=== PATIENT | female | born 1970 | race Caucasian/White ===

== ENCOUNTER 2016-08-19 00:47 | Emergency (ER) | payer OTHER ==
[~2016-08-19] VITALS: Ht 172.7 cm; Wt 83.2 kg
--- NOTE | 2016-08-19 00:56 | ED.REPORT ---
HPI-Extremity Problem Lower Date of Service August 19, 2016 ED Provider: Hiren Yeh MD 46 year old female with a history of left knee arthritis presents to the ER via EMS accompanied by her complaining of severe sharp, shooting left knee pain onset after she rolled over in bed and attempted to straighten her knee just prior to arrival. Pain is exacerbated by any movement of the joint, and relieved by staying still. She endorses chronic "clicking" of the knee joint with articulation. Patient denies any recent injury to the affected knee. Nursing Notes Stated Complaint: L KNEE PAIN Nursing Notes Reviewed: Yes Allergies: Coded Allergies: No Known Allergies (Unverified , 08/19/16) Scheduled PRN Ibuprofen (Ibuprofen) 600 Mg Tablet 600 MG PO QID PRN PRN For Pain Ondansetron ODT (Ondansetron ODT) 8 Mg Tab.rapdis 8 MG PO QID PRN PRN For Nausea General Time Seen by MD: 00:56 Chief Complaint Knee injury left Hx Obtained From: Patient Arrived By: Ambulance Onset Occurred: Just prior to arrival Symptom Duration: Since onset Caused by: Mechanism unknown Context: Occurred at: Home injury Location: : Knee left Quality: Sharp Severity: Current: Mild Severity: Maximum: Severe Pertinent Negative: Pt denies other symptoms Exacerbated by: Extension, Flexion, Movement, Twisting Pertinent Negative: Relieved by nothing Similar Sx Previous: Yes Past Medical History Past Medical History Arthritis Smoking History Unknown if Ever Smoker Social History Other Social History: Good social support, Review of Systems Musculoskeletal: Reports: Joint pain (Left Knee), Joint swelling (Left Knee), Denies: Back pain, Extremity pain, Lumbar pain, Neck pain, Thoracic pain Neurologic: Denies: Numbness Complete sys rev & neg: except as marked. Physical Exam Initial Vital Signs Vital Signs (First) Date Time Temp Pulse Resp B/P Pulse Ox O2 Delivery O2 Flow Rate FiO2 08/19/16 00:59 36.9 80 22 130/77 96 Room Air Initial VS: Reviewed General/Constitutional: Well-developed, Well-nourished Head / Eyes: Atraumatic, Normocephalic, PERRL Neck: Supple, Non-tender, Full range of motion Upper Extremities: Vascular intact, Neuro intact, No swelling, No tenderness Skin: Warm, Dry, No cyanosis Neurologic: Alert, Oriented, Nonfocal Lower Extremity / Pelvis / MS: No deformity, Neurologic intact, Vascular intact Left Knee: Positive: ROM painful, Tenderness present... (Moderate, with guarding) Swelling of the left infrapatellar bursa. Ankle / Foot: Atraumatic, Inspection NL, Full range of motion, No swelling, No erythema, Non-tender, No deformity, Neurologic intact, Vascular intact, No edema Interpretation & Diagnostics Lab Results Interpretation Test 08/19/16 01:13 Hold Urine Received (Received) X-Ray Interpretation Xray Interpretation: Thinning of the medial compartment. Lax patellar tendon with slightly high-riding patella. X-Ray Ordered: Knee left Interpretation / Wet Read by: Wet read ED physician Re-Eval/Medical Decision Med Decision/Clinical Course Tender medial compartment of the knee with clicking and locking and severe pain suggesting cartilaginous loose body and internal derangement. Already known to orthopedics. Placed in a short knee immobilizer and given crutches from her boyfriend. Toradol here with one half Vicodin and a go pack of Vicodin for home use. Zofran for the anticipated nausea. Follow-up with PCP and with orthopedic Source of Hx: Old records Re-Evaluation/Progress #1: Time of Eval: 01:13 Re-Evaluation/Progress Note: Discussed physical examination findings and need for x-ray. Patient understands and agrees to the plan. Re-Evaluation/Progress #2: Time of Eval: 01:44 Re-Evaluation/Progress Note: Discussed lab and imaging results and plan to discharge. Patient is amenable to the plan. Return precautions given. All other questions addressed. Counseled Regarding: Diagnosis, Lab results, Need for follow-up, When/why to return to ED Discharge & Departure Impression: Primary Impression: Internal derangement of left knee Disposition: Home Discharge Condition All VS Reviewed: Yes Condition: Stable Additional Instructions: Wear your knee immobilizer for comfort. If you are more comfortable without it , you may omit it. It is strictly a comfort measure. Ibuprofen first then sparing use of Vicodin if needed for pain Zofran if needed for times daily for nausea Call your orthopedist tomorrow for follow-up at your next mutual convenience Crutches whenever up to avoid weightbearing Follow-up also with your doctor in the office Return if any immediate issues. Referrals: Stiven Howell MD (PCP) Hiren Maza MD Scribe Attestation Portions of this note were transcribed by Sanchez Vyas. I, Dr. Yeh, personally performed the history, physical exam and medical decision-making; I reviewed and confirmed the accuracy of the information in the transcribed note. Signed by: Tal Gregory, 08/19/2016 at 01:47 copies to: Stiven Howell MD; Hiren Maza MD, Christopher W MD August 19, 2016 00:56 SANCHEZ VYAS August 19, 2016 01:10
[2016-08-19 00:59] VITALS: BP 130/77; PULSE 80; RESP 22; O2SAT 96
[2016-08-19] MEDS ORDERED: Ondansetron 8 mg ODT Tablet PO ONE (01:15)
[2016-08-19] MEDS ORDERED: HYDROcodone-APAP 5-325 mg Tablet PO ONE (01:15)
[2016-08-19] MEDS ORDERED: _HYDROcodone/APAP 5-325 mg Tablet PO PRN (01:15)
[2016-08-19] MEDS ORDERED: _Ondansetron ODT 4 mg Tablet PO PRN (01:15)
[2016-08-19] MEDS ORDERED: ONDA8TAB10 PO (01:31)
[2016-08-19] MEDS ORDERED: IBUP-1827 PO (01:33)
--- NOTE | 2016-08-19 07:56 | DRSVH ---
PROCEDURE: X-RAY LEFT KNEE, ONE OR TWO VIEWS ([id number]) INDICATIONS: pain withoout traume TECHNIQUE: 3 views of the knee were acquired. COMPARISON: None. FINDINGS: Bones: No fractures or dislocations. No suspicious bony lesions. Tricompartmental degenerative anand nge greatest in the medial compartment greater than expected for the patient's age. Soft tissues: No joint effusion. No suspicious soft tissue calcifications. IMPRESSION: Tricompartment degenerative change greater than expected for the patient's age. No acute fractures or dislocations. Dictated by: Garo Valladares M.D. on 08/19/2016 at 7:53 Approved by: Garo Valladares M.D. on 08/19/2016 at 7:54
== END 2016-08-19 02:08 | disposition home or self-care (01) ==
LOC: SED 00:47
DX: M23.8X2 Other internal derangements of left knee (principal)
CPT/HCPCS: 73560; 81025; 96372; 99284; J1885

== ENCOUNTER 2016-09-21 09:51 | Day surgery (SDC) | payer OTHER ==
[2016-09-21] VITALS (9 sets, daily range): BP systolic 116–220; BP diastolic 66–79; PULSE 78–93; RESP 14–16; O2SAT 93–98
[~2016-09-21] VITALS: Ht 172.7 cm; Wt 86.8 kg
[~2016-09-21 09:51] MED LIST: CeFAZolin Inj 2 GM in IV Premix 1 EACH IV ONE
[2016-09-21] MEDS ORDERED: fentaNYL-PF 50 mCg/mL 2 mL Inj ONE (09:52)
[2016-09-21] MEDS ORDERED: Propofol 10,000 mCg/mL 20 mL Inj ONE (09:52)
[2016-09-21] MEDS ORDERED: Dexamethasone 4 mg/mL Inj ONE (09:52)
[2016-09-21] MEDS ORDERED: Lidocaine PF 1% 30 mL Inj ONE (09:52)
[2016-09-21] MEDS ORDERED: Ondansetron 2 mg/mL 2 mL Inj ONE (09:52)
[2016-09-21] MEDS: Lactated Ringer's 1,000 ML IV SCH ×2 (09:57→12:39)
[2016-09-21] MEDS ORDERED: HYDROcodone-APAP 5-325 mg Tablet PO PRN (11:15)
[2016-09-21] MEDS ORDERED: Ketorolac 15 mg/mL Inj IVPUSH ONE (11:15)
--- NOTE | 2016-09-21 12:06 | PCM.ORTHOP ---
Orthopedic Operative Report Date of Service: Sep 21, 2016 Pre Operative Diagnosis Left knee loose body, chondromalacia Post Operative Diagnosis Same Procedure Left knee arthroscopy, multiple loose chondral bodies removal, chondroplasty, partial synovectomy Surgeon Surgeon: Hiren Maza MD Assistants: None Indication for Procedure Left knee loose body Findings Per dictation Details of Procedure INDICATIONS: Tiffanie Valdez is a 46-year-old female who has had a history of left knee pain after injury with loose body versus exostosis noted on MRI and mechanical symptoms.. The patient has failed conservative management. X-rays show the tibiofemoral joints to be preserved with mild DJD. MRI was obtained which reveals no meniscus tear with chondromalacia. The patient has had persistent symptoms and is now brought to the operating room for arthroscopy. The risks, benefits, and alternatives of surgery were discussed with the patient. The risks included but were not limited to infection, bleeding, damage to vessels and nerves, loss of motion, continued pain, re-tear of the meniscus, deep venous thrombosis, and complications due to anesthesia including nerve injury, myocardial infarction, stroke, , etc. The patient stated understanding of the nature of the surgical procedure and gave written and verbal consent to proceed. PROCEDURE: The patient was brought to the operating room and placed supine on the operating room table. After the administration of general anesthesia the patient was placed in the supine position. Examination of the knee revealed no evident instability with a trace effusion. All prominences were padded with appropriately and neurovascular structures protected. The left knee was confirmed to be the appropriate site following surgical time out. The left lower extremity was examined under anesthesia. Range of motion was 0-135 degrees. There was no varus or valgus or anterior or posterior instability. The left lower extremity was then prepped and draped in the usual fashion. Sterile prep and drape was then undertaken of the knee. The knee joint was injected with 20 ccs of 1% Lidocaine, along with 3 ccs of 1 % lidocaine in the medial and lateral portal sites respectively. A standard anterolateral parapatellar stab wound was created. The knee joint was entered with a blunt- tipped obturator, followed by the 30-degree video arthroscope. An anteromedial portal was established under arthroscopic control. A routine arthroscopic survey was performed. Small chondral loose bodies were removed the largest being 1 cm x 5 mm. The lateral patellofemoral joint demonstrated an exostosis which was fixed to the femur The patellofemoral joint showed grade 2/3 chondromalacia which was debrided down to stable tissue with a shaver. She had a severely laterally maltracking patella with grade 3/4 chondromalacia changes to the medial trochlea. The medial joint space was then entered. The articular surfaces showed grade 2/ 3 chondromalacia. The meniscus appeared to be intact. The shaver and the cutting instruments were inserted, and gentle debridement of the cartilage down to stable tissue was then undertaken. The ACL and PCL were noted to be intact. The lateral joint space was then entered. The articular surfaces were intact with grade 2/3 chondromalacia. There was no tear to the lateral meniscus. There was grade grade 2/3 chondromalacia to the lateral femoral condyle approximately 3 cm by 1 cm and a shaver was used for gentle debridement of this tissue down to stable tissue was undertaken. Moderate synovitis was noted anteriorly in the medial and lateral compartment and debrided with a shaver. The knee was irrigated with an additional 2 liters of lactated Ringer's solution. Excess fluid was drained. The portals were closed with 3-0 nylon as well as xeroform. The knee was injected with 20 mL of 0.5% ropivacaine. A dry sterile dressing was applied, followed by an SANDRA hose, soft roll, and WANDA bandage. The patient was awakened in the operating room and transported to the recovery room in satisfactory condition. The patient appeared to tolerate the procedure well. At the completion of surgery the patient had soft compartments , palpable pulses, and brisk capillary refill. There were no complications noted. Please keep dressing clean dry and intact. Do not remove dressing until follow- up in clinic. If the dressing become soaked, you may remove the outer gauze and placed Band-Aids on the wounds. You may weight-bear as tolerated and maintain motion of your knee by bending it daily. You will follow up in clinic in 10-14 days for suture removal, and placement of new Steri-Strips. You will follow-up with me in clinic, and we will start physical therapy if needed. You will follow-up with me at 6 weeks postop and 12 weeks postop and will be released after that if improved. Please keep the affected extremity elevated when possible. Please take aspirin as prescribed You may use ice and/ or heat as needed for comfort. (preferably ice during the first 48-72 hours) Please feel free to call with any further questions, comments, and/or concerns. We discussed possible future surgery needed including cartilage and/or corrective tracking surgeries Grafts, Implants: None Complications There were no periprocedural complications identified. Condition Stable Anesthetic Administered: GA Catheters: None Output, Estimated Blood Loss: 5 Blood Admin during surgery: No Surgical Cast or Splint: Other Surgical Specimen Removed: No Specimen sent to Pathology: No copies to: Hiren Maza MD, Christopher L MD Sep 21, 2016 12:06
--- NOTE | 2016-09-21 12:17 | PCM.HPANE ---
Patient Data Date of Service: Sep 21, 2016 Surgeon Admitting Provider: Attending Provider:Hiren Maza MD Primary Care Physician:Keri Parada ND Other Provider:Cassandra Lemons Anesthesia Reason for Visit Left Knee Patellofemoral Disorder Ht/WT & BMI Height (Feet): 5 Height (Inches): 8.00 Weight (Kilograms): 86.8 Body Mass Index 29.00 Allergies Coded Allergies: No Known Allergies (Unverified , 09/20/16) Past Anesthesia History Anesthesia History: Denies:: Fam Anesthesia Reaction, Fam Malignant Hypertherm Diabetes History Hx Diabetes?: No MRSA MRSA: No Medications Home Meds Incl Beta Jyotsna: No Discontinued Scripts Ibuprofen 600 Mg [id number] Mg PO QID PRN For Pain #30 TABLET Prov:Hiren Yeh MD 08/19/16 Ondansetron ODT 8 Mg Tab.rapdis8 Mg PO QID PRN For Nausea #20 TABLET Prov:Hiren Yeh MD 08/19/16 History History of ENT Problems?: No HEENT History: Denies:: Abnormal Airway Denture Type: None Teeth Condition: Within Normal Limits Hx of Heart Problems?: No Cardiovascular History: Denies:: Congestive Heart Failure Heart Murmur Hypertension Hx of Respiratory Problem?: Yes Respiratory History: Denies:: Tuberculosis Use of C-PAP Machine (SNORES) Hx Neurologic Problems?: Yes Hx of GI Problems?: No Hx of Problems?: No Female Hx: Denies:: Currently Skin History: Denies:: History Skin Disorders? Pressure Ulcers Hx Musculoskeletal Problems?: Yes Musculoskeletal History: Positive for:: Musculoskeletal Trauma (INTERNAL DERANGEMENT LT KNEE=CURRENT PROBLEM) Osteoarthritis (POST-TRAUMATIC KNEE) Hx of Psycho/Social Problems?: No Hx Surgeries?: No Hx Any Other Health Problems?: No Other History: Denies:: Cancer Endocrine Disease Hospitalization Thyroid Disease History Blood Transfusions: Denies:: Blood Transfusions Hx Diabetes: No Smoking Status: Unknown if Ever Smoker Stop/Bang S-Snoring: Do You Snore Loudly: Yes T-Tired: feel tired, fatigued: Yes O-Obsered: Observed not breath: No P-Blood Pressure: treated: No B- Body Mass Index > 35 kg/m2: No A- Age over 50: No N- Neck Large Circumference: No G- Gender Male: No MILVIA Total Score: 2 MILVIA Risk Assessment: Low Risk, <3 Yes Risk Assessment Category Category 1A: Patient has history of documented sleep apnea, and HAS NOT received any narcotic, sedative or anesthesia administration during this stay. Category 1B: Patient has history of documented sleep apnea, and HAS received any narcotic , sedative or anesthesia administration during this stay Category 2: Patient has SUSPECTED Obstructive Sleep Apnea, and HAS received any narcotic , sedative or anesthesia administration during this stay. Category 3: Patient has SUSPECTED Obstructive Sleep Apnea and HAS NOT received narcotic, sedative or anesthesia administration during this stay. Category 4: Outpatient in Procedural Areas with known sleep apnea or who screen positive for High Risk via the STOP/BANG questionnaire. Exam Exam Vital Signs 131/83 80 16 96% RA General Appearance: Alert, Oriented X3, Cooperative, No Acute Distress HEENT/AIRWAY: MP 2 Lungs: Clear to Auscultation, Normal Air Movement Heart: Exam Unremarkable, Regular Rate/Rhythm, No Murmurs/Rubs/Gallops Meds/Labs/Diagnostics Admission Meds Current Medications Lactated Ringer's (Lr) 1,000 ml @ 80 mls/hr [id number] IV Last administered on t 09:57; Start 09/21/16 at 08:00 Plan Impression Patient chart reviewed, patient interviewed and anesthestic plan with risks, benefits, and alternatives discussed, and informed consent obtained. NPO per Anesth. Guidelines: Yes ASA Physical Status: ASA1 Normal Healthy Anesthetic Plan: GA Bene/Risks/Altern/Consents: Yes HP Complete Prior to Induction: Yes Yoseph Echols MD Sep 21, 2016 12:17
[2016-09-21] MEDS ORDERED: Lactated Ringer's 1,000 ML IV SCH (13:02)
[2016-09-21] MEDS ORDERED: Lactated Ringer's 500 ML IV PRN (13:02)
[2016-09-21] MEDS ORDERED: Ropivacaine-PF 0.5% 30 mL Inj INFILTRATE ONE (13:03)
[2016-09-21] MEDS ORDERED: MetoCLOpramide 5 mg/mL 2 mL Inj IVPUSH PRN (13:05)
[2016-09-21] MEDS ORDERED: Phenylephrine 10,000 mCg/mL Inj IVPUSH PRN (13:05)
[2016-09-21] MEDS ORDERED: HYDROmorphone 1 mg/mL Inj IVPUSH PRN (13:05)
[2016-09-21] MEDS ORDERED: fentaNYL-PF 50 mCg/mL 2 mL Inj IVPUSH PRN (13:05)
[2016-09-21] MEDS ORDERED: EPHEDrine Sulfate 50 mg/mL Inj IVPUSH PRN (13:05)
[2016-09-21] MEDS ORDERED: Ondansetron 2 mg/mL 2 mL Inj IVPUSH PRN (13:05)
[2016-09-21] MEDS ORDERED: Atropine 0.4 mg/mL Inj IVPUSH PRN (13:05)
--- NOTE | 2016-09-21 13:31 | PCM.ANEP1 ---
Post Anesthesia PACU Phase 1 Assessment Date of Service: Sep 21, 2016 Vital Signs 36.2 145/79 93 14 96% RA Anesthetic Administered: GA Level of Alertness: Sleepy, easy to arouse OSWALD's with Equal Strength: Yes Pain: No Nausea or Vomiting: No CV Function & Hydration Stable: Yes Airway Device: Oxygen Delivery: Room Air Lungs: Clear to Auscultation, Normal Air Movement PACU Phase 2 Assessment Complications: No Follow up Care: No Patient Instructions Provided: Yes Yoseph Echols MD Sep 21, 2016 13:31
== END 2016-09-21 23:59 | disposition home or self-care (01) ==
LOC: SAS 09:51
PROVIDERS: ATTEND Orthopaedic Surgery
DX: M17.12 Unilateral primary osteoarthritis, left knee (principal); M23.42 Loose body in knee, left knee; M22.42 Chondromalacia patellae, left knee; M65.862 Other synovitis and tenosynovitis, left lower leg; M25.562 Pain in left knee
CPT/HCPCS: 29875; J0690; J1100; J1885; J2250; J2405; J2795; J3010; J7120